=== PATIENT | female | born 1995 | race Two or more races ===

== ENCOUNTER 2022-11-16 18:34 | Emergency (ER) | payer BC ==
[~2022-11-16] VITALS: Ht 160 cm; Wt 56.2 kg
--- NOTE | 2022-11-16 18:45 | NUR ---
[id number] FOR [employer]NCOPE WHILE AT WORK. +HEADACHE FROM HITTING HEAD ON THE FLOOR
--- NOTE | 2022-11-16 18:58 | NUR ---
URINE SAMPLE COLLECTED AND SENT TO LAB
[2022-11-16] MEDS ORDERED: IV NS 0.9% 1,000 ML BAG IV ONE (19:00)
--- NOTE | 2022-11-16 19:13 | NUR ---
NEW IV ACCESS AT [facility] 20G. BLOOD DRAWN AND SENT TO LAB.
[2022-11-16 19:27] LABS: BILIRUBIN,URINE 1+ (NEGATIVE); COLOR,URINE YELLOW (YELLOW); LEUKOCYTE ESTERASE ,URINE TRACE (NEGATIVE); NITRITE, URINE NEGATIVE (NEGATIVE); PROTEIN,URINE TRACE mg/dl (NEGATIVE); UGLUCOSE NEGATIVE (NEGATIVE)
[2022-11-16 19:53] LABS: BACTERIA,URINE None seen /HPF (None Seen); MUCUS,URINE Few /LPF (None Seen); RBC,URINE NONE SEEN /HPF (0-2); SQUAMOUS EPITHELIAL CELL,UR None Seen /HPF (None Seen); WBC,URINE 0-2 /HPF (0-3)
--- NOTE | 2022-11-16 22:15 | NUR ---
Patient discharged to home in stable condition. Written and verbal after care instructions given. Patient verbalizes understanding of instruction.IV removed. Catheter intact and site benign. Pressure and 4x4 applied to site. No bleeding noted.
[2022-11-16 22:20] VITALS: BP 103/62
== END 2022-11-16 22:21 | disposition home or self-care (01) ==
LOC: ER 18:42
DX: S00.03XA Contusion of scalp, initial encounter (principal); R55 Syncope and collapse; W18.30XA Fall on same level, unspecified, initial encounter; Y93.89 Activity, other specified; Y92.89 Other specified places as the place of occurrence of the external cause; Y99.8 Other external cause status
CPT/HCPCS: 99284; 96360; 93005; 84703; 81001; J7030; A4223